=== PATIENT | female | born 1985 | race Caucasian/White ===

== ENCOUNTER 2020-08-14 09:23 | Outpatient (RCR) | payer OTHER, SELFPAY | END 2020-08-17 09:35 | disposition left against medical advice (07) | LOC: HO.PHPA 09:23 | PROVIDERS: Visit Provider Psychiatry & Neurology Psychiatry | DX: F32.9 Major depressive disorder, single episode, unspecified (principal) | CPT/HCPCS: 90791; 90853 ==